=== PATIENT | female | born 1955 | race Caucasian/White ===

== ENCOUNTER → 2016-09-18 | Outpatient (CLI) | payer BC ==
[~2016-09-18] MED LIST: ASPIRIN EC325 MG PO; CALTRATE 600 +1 EAC1 PO; CELEBREX200 MG PO; ESTRADIOL1 EAC8 TOP; FLAGYL500 MG PO; FLORASTOR250 MG PO; LEXAPRO10 MG PO; LIPITOR TAB 1010 MG PO; PHILLIPS' COLO1 EACH PO; PREMARIN VAG CR30 GM PV; PROMETHAZINE HC25 M1 PO; PROTONIX 40 MG40 M1 PO; QUINAPRIL-HCTZ1 EAC1 PO; VITAMIN D50000 UNIT PO
== END ==
LOC: KOH-I 10:39
DX: R05 Cough (principal)
CPT/HCPCS: 71020

== ENCOUNTER 2021-03-24 17:22 | Emergency (ER) | payer BC ==
[~2021-03-24 17:22] MED LIST changes: +AROMASIN25 MG PO; +AVAPRO300 MG PO; +GLUCOPHAGE XR500 MG PO; +LEVAQUIN750 MG PO; +NORCO 7.5-3251 EACH PO; +NORVASC 5 MG TAB5 MG PO; +TOVIAZ4 MG PO; +ZOFRAN4 MG PO
[2021-03-24 18:02] LABS: HEMOGLOBIN 14.6 gm/dl (12.3-15.3); RED BLOOD COUNT 4.88 M/UL (4.00-5.10); WHITE BLOOD COUNT 8.9 K/UL (4.5-11.0)
[2021-03-24 18:25] LABS: BUN/CREATININE RATIO 27 (0-10)
[2021-03-24] MEDS ORDERED: ZOFRAN4 MG PO (19:42)
[2021-03-24 20:44] LABS: ADENOVIRUS F 40/41 Not Detected (Negative); ASTROVIRUS Not Detected (Negative); CAMPYLOBACTER Not Detected (Negative); CLOSTRIDIUM DIFFICILE TOX A/B Not Detected (Negative); CRYPTOSPORIDIUM Not Detected (Negative); E.COLI 0157 Not Detected (Negative); ENTAMOEBA HISTOLYTICA Not Detected (Negative); ENTEROAGGREGATIVE E.COLI (EAEC Not Detected (Negative); ENTEROPATHOGENIC E.COLI (EPEC) Not Detected (Negative); ENTEROTOXIGENIC E.COLI (ETEC) Not Detected (Negative); GIARDIA LAMBLIA Not Detected (Negative); NOROVIRUS GI/GII Not Detected (Negative); PLESIOMONAS SHIGELLOIDES Not Detected (Negative); ROTOVIRUS A Not Detected (Negative); SALMONELLA Not Detected (Negative); SAPOVIRUS Not Detected (Negative); SHIG/ENTEROINVAS.ECOLI (EIEC) Not Detected (Negative); SHIGA-LIK TOX.PRO.E.COLI (STEC Not Detected (Negative); VIBRIO Not Detected (Negative); VIBRIO CHOLERAE Not Detected (Negative); YERSINIA ENTEROCOLITICA Not Detected (Negative)
== END 2021-03-24 20:25 | disposition home or self-care (01) ==
LOC: ER1 17:22
PROVIDERS: Emergency Medicine; Nurse Practitioner
DX: A08.4 Viral intestinal infection, unspecified (principal); E11.9 Type 2 diabetes mellitus without complications; I10 Essential (primary) hypertension
CPT/HCPCS: 80053; 81001; 83690; 85025; 87507; 96374; 99284; J2405

== ENCOUNTER 2021-04-01 10:00 | Emergency (ER) | payer BC | END 2021-04-01 14:40 | disposition home or self-care (01) | LOC: ER1 10:00 | DX: U07.1 COVID-19 (principal); E11.9 Type 2 diabetes mellitus without complications; I10 Essential (primary) hypertension; Z90.710 Acquired absence of both cervix and uterus; Z23 Encounter for immunization | CPT/HCPCS: 71045; 99283; M0245 ==